=== PATIENT | male | born 1945 | race Caucasian/White ===

== ENCOUNTER 2020-11-29 15:29 | Emergency (ER) | payer MEDICARE, OTHER ==
[2020-11-29 16:43] LABS: HEMOGLOBIN 15.5 gm/dl (14.0-17.5); RED BLOOD COUNT 4.94 M/UL (4.20-5.50); WHITE BLOOD COUNT 10.7 K/UL (4.5-11.0)
[2020-11-29 17:35] LABS: BUN/CREATININE RATIO 11 (0-10)
[2020-11-29] MEDS ORDERED: ZOFRAN4 MG PO (18:35)
== END 2020-11-29 18:40 | disposition home or self-care (01) ==
LOC: ER1 15:29
PROVIDERS: Physician Assistant
DX: E86.0 Dehydration (principal); Z20.822 Contact with and (suspected) exposure to COVID-19; I10 Essential (primary) hypertension; R11.2 Nausea with vomiting, unspecified
CPT/HCPCS: 36600; 70450; 71045; 80053; 81001; 82140; 82550; 82553; 82803; 83605; 83690; 83874; 84484; 85025; 85652; 86140; 87086; 96374; 99284; J0696; U0002